=== PATIENT | female | born 1975 | race Caucasian/White ===

== ENCOUNTER 2017-11-11 09:45 | Emergency (ER) | payer OTHER ==
[~2017-11-11] VITALS: Ht 152.4 cm; Wt 70.3 kg
[~2017-11-11 09:45] MED LIST: IBUPROFEN 600600 M1 PO; NAPROSYN500 MG PO; NORFLEX100 MG PO; TRAMADOL 50 MG50 MG PO; ULTRAM 50MG TAB50 MG PO; ZOFRAN ODT4 MG PO
[2017-11-11 10:13] LABS: URINE BILIRUBIN NEGATIVE (Negative); URINE BLOOD 3+ (Negative); URINE CLARITY CLEAR; URINE COLOR YELLOW; URINE GLUCOSE-RANDOM* NEGATIVE (Negative); URINE KETONES NEGATIVE (Negative); URINE LEUKOCYTES-REFLEX NEGATIVE (Negative); URINE NITRITE-REFLEX NEGATIVE (Negative); URINE PROTEIN (DIPSTICK) NEGATIVE (Negative); URINE SPECIFIC GRAVITY 1.025 (1.005-1.035); URINE UROBILINOGEN 0.2 E.U./dl (0.2-1.0)
[2017-11-11 10:23] LABS: ABSOLUTE NEUTROPHILS 4.1 thou/uL (1.4-8.2); BASOPHILS 0.8 % (0.0-2.0); EOSINOPHILS 1.2 % (0.0-3.0); HEMATOCRIT 41.1 % (37.0-47.0); HEMOGLOBIN 14.3 gm/dL (12.0-15.0); LYMPHOCYTES 35.5 % (24.0-44.0); MCH 31.3 pg (26.0-34.0); MCHC 34.9 g/dL (28.0-37.0); MCV 89.7 fL (80.0-100.0); MONOCYTES 7.9 % (1.0-8.0); PLATELET COUNT 239 thou/uL (150-400); POLYS 54.6 % (36.0-66.0); RBC 4.58 mil/uL (4.20-5.00); WBC 7.4 thou/uL (4.0-11.0)
[2017-11-11 10:30] LABS: SQUAMOUS >10 Many /LPF (0-3)
[2017-11-11 10:30] LABS: CALCIUM 9.5 mg/dL (8.5-10.1); CREATININE 0.8 mg/dL (0.6-1.0)
[2017-11-11 10:31] LABS: BACTERIA-REFLEX 1-9 Few /HPF (None Seen); CASTS None Seen /LPF (None Seen); CRYSTALS None Seen /LPF (None Seen); URINE RBC 0-2 Rare /HPF (0-2); URINE WBC-REFLEX 0-5 Rare /HPF (0-5)
[2017-11-11 10:35] LABS: ALBUMIN 3.8 g/dL (3.4-5.0); TOTAL BILIRUBIN 0.6 mg/dL (<0.1-1.0); TOTAL PROTEIN 7.9 g/dL (6.4-8.2)
[2017-11-11] MEDS ORDERED: NORFLEX100 MG PO (11:15)
[2017-11-11] MEDS ORDERED: MOBIC7.5 MG PO (11:15)
[2017-11-11 11:42] VITALS: BP 120/62
== END 2017-11-11 11:50 | disposition home or self-care (01) ==
LOC: ER 09:45
PROVIDERS: Nurse Practitioner Family
DX: M79.10 Myalgia, unspecified site (principal); G44.209 Tension-type headache, unspecified, not intractable

== ENCOUNTER 2020-09-27 21:45 | Emergency (ER) | payer OTHER ==
[~2020-09-27] VITALS: Ht 152.4 cm; Wt 76.7 kg
[~2020-09-27 21:45] MED LIST changes: +MOBIC7.5 MG PO
[2020-09-27 21:53] VITALS: BP 164/78
[2020-09-27] MEDS ORDERED: HYDROXYZINE HCL50 MG PO (22:18)
[2020-09-27] MEDS ORDERED: MEDROLDOSEPACK PO (22:18)
== END 2020-09-27 22:22 | disposition home or self-care (01) ==
LOC: ER 21:45
DX: S50.862A Insect bite (nonvenomous) of left forearm, initial encounter (principal); S50.861A Insect bite (nonvenomous) of right forearm, initial encounter; Z79.1 Long term (current) use of non-steroidal anti-inflammatories (NSAID); Z79.899 Other long term (current) drug therapy; W57.XXXA Bitten or stung by nonvenomous insect and other nonvenomous arthropods, initial encounter; Y93.89 Activity, other specified; Y92.89 Other specified places as the place of occurrence of the external cause; Y99.8 Other external cause status

== ENCOUNTER 2020-11-28 21:05 | Emergency (ER) | payer OTHER ==
[~2020-11-28] VITALS: Ht 162.6 cm; Wt 77.1 kg
[~2020-11-28 21:05] MED LIST changes: +HYDROXYZINE HCL50 MG PO; +MEDROLDOSEPACK PO
[2020-11-29 02:24] VITALS: BP 158/90
== END 2020-11-29 02:27 | disposition home or self-care (01) ==
LOC: ER 21:05
DX: R51.9 Headache, unspecified (principal); Z79.899 Other long term (current) drug therapy